=== PATIENT | male | born 1990 | race African-American/Black ===

== ENCOUNTER 2025-04-22 16:10 | Emergency (ER) | payer MEDICAID, SELFPAY ==
[2025-04-22 16:21] VITALS: BP 162/94; PULSE 93; RESP 16; TEMP 36.6; O2SAT 100; BMI 43.6
--- NOTE | 2025-04-22 16:52 | ED_ITS ---
Discharge Plan Disposition Patient Disposition: Home, Self-Care Condition: Good Prescriptions Prescriptions: New losartan-hydrochlorothiazide 100-25 mg tablet 1 tab PO DAILY Qty: 31 0RF atorvastatin [Lipitor] 40 mg tablet 40 mg PO DAILY Qty: 31 0RF Referrals Follow up/Referrals: Jared Albarado DO [Staff Physician, Family Practice] - See instructions Provider,Referral, MD [Primary Care Provider, Medical] - See instructions Activity Restrictions/Add. Instructions Additional Instructions/Restrictions: Have sent you with a referral to Dr. Albarado who is a primary care doctor. You will need to call to schedule an appointment. I have sent you with 1 month of your medications and you will need to get additional refills from him. Return to the emergency department for any acute or worsening symptoms. Clinical Impressions Clinical Impression: Has run out of medications Print Language Print Language: Portuguese Discharge ED Provider: Mary Horton Adult HPI General Chief complaint: PAIN Stated complaint: Out of BP Meds and wants to be seen to get treated Time Seen by Provider: 04/22/25 16:32 Mode of Arrival: Ambulatory Source of Information: Patient Description of Symptoms (Recalled from ER Triage Doc. by RN): Reports being prescribe blood pressure medication and chloesterol medication in [place] [facility] in December. States he has ran out of both medications and needs a refill. States he takes Atorvastatin 40mg daily and Losartan 100mg daily. Last does of both medications yesterday. History of Present Illness HPI narrative: Patient is a 35-year-old gentleman with a past medical history of high cholesterol and hypertension who presented to the emergency department with concern that he has run out of his blood pressure medications today. Patient states that he recently just got his insurance figured out and ran out today. Patient has not been established with a new primary care provider. Patient denies any symptoms including chest pain, shortness of breath headache abdominal pain nausea vomiting diarrhea or other associated symptoms. Related Data Previous Rx's ?Medication ?Instructions ?Recorded atorvastatin 40 mg tablet (Lipitor) 40 mg PO DAILY #31 tabs 04/22/25 losartan 100 1 tab PO DAILY #31 tabs 03/27 8/25 mg-hydrochlorothiazide 25 mg tablet Allergies Allergy/AdvReac Type Severity Reaction Status Date / Time No Known Allergies Allergy Verified 04/22/25 16:27 [facility] Disclaimer: The information contained in this section may have been updated after the patient was seen, as this information can be updated by other users. Social History Smoking Status: Current every day smoker alcohol intake: never current occupational status: other Travel in the last 8 weeks?: None ROS Obtained: Yes All systems reviewed & no additional complaints except as documented and Yes Systems reviewed as appropriate & no additional complaints except as documented Physical Exam General General appearance: alert and in no apparent distress Head Head exam: atraumatic, normocephalic and normal inspection Eye Eye exam: Present normal appearance, PERRL and EOMI; Absent scleral icterus ENT ENT exam: Present normal exam and normal external ear exam Neck Neck exam: Present normal inspection and full ROM Chest Chest inspection: Present normal inspection and symmetric chest wall rise Respiratory Respiratory exam: Present normal lung sounds bilaterally; Absent respiratory distress or wheezes Cardiovascular Cardiovascular exam: Present regular rate, normal rhythm and normal heart sounds Abdominal Exam Abdominal exam: Present soft and distention; Absent tenderness, guarding or rebound Extremities Exam Extremities exam: Present normal inspection and full ROM Back Exam Back exam: Present normal inspection and full ROM Neurological Exam Neurological exam: Present alert and oriented X3 Psychiatric Psychiatric exam: Present normal affect and normal mood Skin Skin exam: Present warm and dry Medical Decision Making Medical Records Medical records reviewed: Yes I reviewed the patient's medical records. Screening: Per USPSTF and CDC recommendations, given the prevalence of disease in our region, it is our hospital?s policy to screen for HIV and viral Hepatitis for all patients aged 18 and over and those with ongoing risk factors. Beto Inquiry Pt receiving controlled substance: No Vital Signs: 04/22/25 16:21 Temperature 97.9 F Temperature Source Oral Pulse Rate [Radial] 93 H Respiratory Rate 16 Blood Pressure [Left Arm] 162/94 H Blood Pressure Mean [Left Arm] 116 Blood Pressure Source [Left Arm] Automatic Cuff Blood Pressure Position [Left Arm] Sitting 02 Sat by Pulse Oximetry 100 Oxygen Delivery Method Room Air Lab Data Lab results reviewed: Yes I reviewed the patient's lab results. Orders (Tests/Meds): ED MEDICATIONS Discontinued Medications Generic Name Dose Route Start Last Admin Trade Name Freq PRN Reason Stop Dose Admin Hydrochlorothiazide 25 mg 04/22/25 17:00 Hydrochlorothiazide 25mg Tablet PO 04/22/25 17:01 ONCE ONE Irbesartan 100 mg 04/22/25 17:00 Irbesartan 150mg Tab PO 04/22/25 17:01 ONCE ONE Medical Decision Narrative: Patient is a 35-year-old gentleman with a past medical history of hypertension and high cholesterol who presented to the emergency department after running out of his medications. On arrival, patient was hemodynamically stable with unremarkable vital signs. Differential includes but not limited to: Medication noncompliance, medication refill, hypertensive urgency, hypertensive emergency, amongst others. Patient takes losartan 100 mg/hydrochlorothiazide 25 mg combo and takes 40 mg of atorvastatin daily. Patient was given a dose of his home medications here in the emergency department and patient was sent with a 1 month refill. Patient was sent with a referral to Dr. Albarado to establish primary care. Patient was mildly hypertensive with a systolic of 160s but patient was otherwise asymptomatic therefore further workup and labs were not felt to be indicated at this time. Patient was otherwise discharged home in stable condition return precautions jeff e discussed. Critical Care Critical Care Time Critical Care Time: No
[2025-04-22] MEDS: IRBESARTAN 150MG TAB 100 MG PO (17:23)
[2025-04-22 17:27] VITALS: BP 160/89; PULSE 89; RESP 16; TEMP 36.6; O2SAT 100
== END 2025-04-22 17:28 | disposition home or self-care (01) ==
PROVIDERS: Emergency Provider Student in an Organized Health Care Education/Training Program
DX: I10 Essential (primary) hypertension (principal); E78.5 Hyperlipidemia, unspecified; Z76.0 Encounter for issue of repeat prescription
CPT/HCPCS: 99282

== ENCOUNTER 2025-05-25 04:49 | Emergency (ER) | payer MEDICAID, SELFPAY ==
--- OUTSIDE RECORDS SUMMARY | 2025-05-25 04:56 | XMS_ITS | Continuity of Care Document ---
Author Organization [facility] Health[facility]. If a dditional information is needed, contact Health Information Management at [phone] [place] [address] Phone Care Team Providers Care Lead Coater Name Role Phone Unavailable Unavailable Unavailable Unavailable Unavailable Unavailable Unavailable Unavailable Unavailable Unavailable Unavailable Unavailable Unavailable Unavailable Unavailable Unavailable Unavailable Unavailable Unavailable Unavailable Unavailable Unavailable Unavailable Unavailable Unavailable Unavailable Unavailable Unavailable Unavailable Unavailable Unavailable Unavailable Problems Personal history finding Onset:21-Jul-2020 Memo Jones Status:Acute Toothache Onset:01-May-2017 Memo Jones Status:Acute Comments:Onset Date: Toothache Onset:01-May-2017 Domenico Huston Status:Acute Comments:Onset Date: Lumbosacral strain Onset:22-Jan-2016 Barrie Mclani Status:Acute Comments:Onset Date: Sprain of ankle Onset:22-Jan-2016 Barrie Mclain Status:Acute Comments:Onset Date: Nausea and vomiting Onset:24-Nov-2015 Barrie Mclain Status:Acute Comments:Onset Date: [id number] Lightheadedness Onset:22-Jul-2015 Dex Chaney Status:Acute Comments:Onset Date: [id number] Pharyngitis Onset:23-Mar-2015 Deja Crane Status:Acute Comments:Onset Date: [id number] Bronchitis Onset:23-Mar-2015 Deja Crane Status:Acute Comments:Onset Date: [id number] Pain Onset:06-Jan-2015 Rodolfo Ontiveros P.A.-C Status:Acute Comments:Onset Date: [id number] Pain Onset:06-Jan-2015 Benigno Anthony DO Status:Acute Comments:Onset Date: Diarrhea Onset:24-Dec-2014 Antonio Arellano Status:Acute Comments:Onset Date: Functional Status Functional finding 01-Sep-2020 Functional finding 01-Sep-2020 Functional finding 01-Sep-2020 Functional finding 21-Jul-2020 Functional finding 21-Jul-2020 Functional finding 21-Jul-2020 Functional finding 01-May-2017 Functional finding 01-May-2017 Functional finding 01-May-2017 Allergies and Adverse Reactions No Known Allergies(Allergy) Onset: 01-Sep-2020 Medications penicillin V potassium 500 m g tablet;1 TAB ORAL Four Times a Day Start:01-Sep-2020 Comments:1 tab PO QID penicillin V potassium 500 m g tablet;1 TAB ORAL Four Times a Day Start:21-Jul-2020 Status:Aborted Comments:1 tab PO QID Motrin;1 TAB ORAL Three Time s a Day Start:21-Jul-2020 Status:Aborted Comments:1 tab PO TID Motrin;800 MG ORAL Two Times a Day Start:04-May-2017 Status:Aborted Comments:800 mg PO BID Motrin;800 MG ORAL Three Miki es a Day Start:04-May-2017 Status:Aborted Comments:800 mg PO TID Cleocin HCl;450 MG ORAL Thre e Times a Day Start:04-May-2017 Status:Aborted Comments:450 mg PO TID penicillin V potassium 500 m g tablet;500 MG ORAL Every 6 Hours Start:01-May-2017 Status:Aborted Comments:500 mg PO Q6 diclofenac sodium;50 MG ORAL Three Times a Day As Needed Start:15-Apr-2016 Status:Aborted Comments:50 MG PO TID PRN As Needed for Pain Scale 6-10 amoxicillin;500 MG ORAL Thre e Times a Day Start:15-Apr-2016 Status:Aborted Comments:500 MG PO TID Flexeril;10 MG ORAL Two Time s a Day As Needed Start:22-Jan-2016 Status:Aborted Comments:10 MG PO BID PRN As Needed for Muscle Spasms naproxen;500 MG ORAL Two Miki es a Day As Needed Start:22-Jan-2016 Status:Aborted Comments:500 MG PO BID PRN As Needed for Pain / Cramps Thayne [id number]_[id number]-AOM;1 TAB ORAL Every 6 Hours as Needed Start:22-Jan-2016 Status:Aborted Comments:1 TAB PO Q6H PRN As Needed for Pain Xolebxcgs_[id number];25 MG ORAL Every 6 Hours as Needed Start:24-Nov-2015 Status:Aborted Comments:25 MG PO Q6H PRN As Needed for Nausea/Vomiting Ventolin Hfa_[id number]-AOM;2 PUFF INHALATION Every 4 Hours as Needed Start:23-Mar-2015 Status:Aborted Comments:2 PUFF INH RT Q4H PRN As Needed for Cough Veetids_PENI500T-AOM;1000 MG ORAL Two Times a Day Start:06-Jan-2015 Status:Aborted Comments:1000 MG PO BID Thayne 2-687_[id number]-AOM;1 TAB ORAL Every 4 Hours as Needed Start:06-Jan-2015 Status:Aborted Comments:1 TAB PO Q4H PRN As Needed for Pain Scale 1-5 Imodium_[id number];4 MG ORAL Once Start:24-Dec-2014 Status:Aborted Comments:4 MG PO ONCE Imodium_[id number]-AOM;2 MG ORAL Every 2 Hours as Needed Start:24-Dec-2014 Status:Aborted Comments:2 MG PO Q2H PRN As Needed for Diarrhea Zofran ODT_[id number]-AOM;4 M G SUBLINGUAL Every 6 Hours as Needed Start:24-Dec-2014 Status:Aborted Comments:4 MG SL Q6H PRN As Needed for Nausea Social History Smoking Status Tobacco smoking consumption unknown Recorded: Aug-2020 Ex-smoker Recorded: 21-Jul-2020 Smokes tobacco daily Recorded: 01-May-2017
[2025-05-25 04:57] VITALS: BP 162/114; PULSE 91; RESP 16; TEMP 36.6; O2SAT 98; BMI 43.6
--- NOTE | 2025-05-25 05:05 | ED_ITS ---
Discharge Plan Disposition Patient Disposition: Home, Self-Care Condition: Good Prescriptions Prescriptions: New losartan-hydrochlorothiazide 100-25 mg tablet 1 tab PO DAILY Qty: 30 2RF atorvastatin [Lipitor] 40 mg tablet 40 mg PO DAILY Qty: 30 2RF No Action losartan-hydrochlorothiazide 100-25 mg tablet 1 tab PO DAILY Qty: 31 0RF atorvastatin [Lipitor] 40 mg tablet 40 mg PO DAILY Qty: 31 0RF Referrals Follow up/Referrals: Provider,Referral, MD [Primary Care Provider, Medical] - See instructions Activity Restrictions/Add. Instructions Additional Instructions/Restrictions: Please follow-up with your primary care provider. Please return to the [facility] department if you develop any new or worsening symptoms or become concerned for your health. Clinical Impressions Clinical Impression: Has run out of medications Print Language Print Language: Lao Discharge ED Provider: Lance Hudson Adult HPI General Chief complaint: PAIN Stated complaint: out of bp meds Time Seen by Provider: 05/25/25 04:50 Mode of Arrival: Ambulatory Source of Information: Patient Description of Symptoms (Recalled from ER Triage Doc. by RN): Patient here previously and was given a 30 day supply of blood pressure medication; states he has not been able to get in with doctor, has an appointment on the and couldn't get one sooner. Needs a refill on the blood pressure medicine. History of Present Illness HPI narrative: 35-year-old male with history of hypertension and hyperlipidemia presents for a refill of his meds. He is out and will be able to be back to see his doctor for another week or so. Denies any specific concerns or complaints. Related Data Previous Rx's ?Medication ?Instructions ?Recorded atorvastatin 40 mg tablet (Lipitor) 40 mg PO DAILY #31 tabs 04/22/25 losartan 100 1 tab PO DAILY #31 tabs 11/2 8/25 mg-hydrochlorothiazide 25 mg tablet atorvastatin 40 mg tablet (Lipitor) 40 mg PO DAILY #30 tabs 05/25/25 losartan 100 1 tab PO DAILY #30 tabs 12/3 1/25 mg-hydrochlorothiazide 25 mg tablet Allergies Allergy/AdvReac Type Severity Reaction Status Date / Time No Known Allergies Allergy Verified 04/22/25 16:[address] [facility] Disclaimer: The information contained in this section may have been updated after the patient was seen, as this information can be updated by other users. Social History (Updated 04/22/25 @ 17:23 by Mary Horton DO) Smoking Status: Current every day smoker alcohol intake: never current occupational status: other Travel in the last 8 weeks?: None Have you lived/traveled outside [place] in past 30 days?: No Contact w/someone who lives/traveled outside US past 30 days?: No Exposure to someone with infectious disease in past 14 days?: No Do you have a fever (greater than 100.4 F or 38 C)?: No Have you tested positive for COVID-19?: No Exposed to someone with COVID-19 in past 14 days?: No Do you have a sore throat?: No Do you have a cough?: No Do you have any weakness?: No Do you have any diarrhea?: No Are you experiencing any unusual bleeding?: No Do you have any muscle aches/pain?: No Do you have any abdominal pain?: No Are you experiencing loss of taste or smell?: No ROS Obtained: Yes All systems reviewed & no additional complaints except as documented Physical Exam General General appearance: alert and in no apparent distress Head Head exam: atraumatic and normocephalic Eye Eye exam: Present normal appearance, PERRL and EOMI ENT ENT exam: Present normal oropharynx and normal external ear exam Neck Neck exam: Present normal inspection and full ROM Chest Chest inspection: Present normal inspection and symmetric chest wall rise; Absent tenderness Respiratory Respiratory exam: Present normal lung sounds bilaterally; Absent respiratory distress Cardiovascular Cardiovascular exam: Present regular rate and normal rhythm Abdominal Exam Abdominal exam: Present soft; Absent distention, tenderness or guarding Extremities Exam Extremities exam: Present normal inspection; Absent edema or joint swelling Back Exam Back exam: Present normal inspection; Absent tenderness Neurological Exam Neurological exam: Present alert and oriented X3; Absent motor sensory deficit Psychiatric Psychiatric exam: Present normal affect and normal mood Skin Skin exam: Present warm, dry and normal color Lymphatic Lymphatic Findings: no adenopathy Medical Decision Making Medical Records Medical records reviewed: Yes I reviewed the patient's medical records. Screening: Per USPSTF and CDC recommendations, given the prevalence of disease in our region, it is our hospital?s policy to screen for HIV and viral Hepatitis for all patients aged 18 and over and those with ongoing risk factors. Beto Inquiry Pt receiving controlled substance: No Beto was queried for this patient: No Vital Signs: 12/31/25 04:57 05/25/25 05:13 Temperature 97.9 F 97.9 F Temperature Source Oral Oral Pulse Rate 89 Pulse Rate [Right Radial] 91 H Respiratory Rate 16 16 Blood Pressure 164/102 H Blood Pressure [Right Arm] 162/114 H Blood Pressure Mean [Right Arm] 130 Blood Pressure Source Automatic Cuff Blood Pressure Source [Right Arm] Automatic Cuff Blood Pressure Position Supine Blood Pressure Position [Right Arm] Supine 02 Sat by Pulse Oximetry 98 Oxygen Delivery Method Room Air Room Air Lab Data Lab results reviewed: Yes I reviewed the patient's lab results. Orders (Tests/Meds): ED MEDICATIONS Discontinued Medications Generic Name Dose Route Start Last Admin Trade Name Freq PRN Reason Stop Dose Admin Hydrochlorothiazide 25 mg 05/25/25 05:04 05/25/25 05:10 Hydrochlorothiazide 25mg Tablet PO 05/25/25 05:05 25 mg ONCE ONE Administration Irbesartan 75 mg 05/25/25 05:02 05/25/25 05:10 Irbesartan 75mg Tablet PO 05/25/25 05:03 75 mg ONCE ONE Administration Medical Decision Narrative: 35-year-old male with history of hypertension, hyperlipidemia presents for refill of his medications without any acute complaints. History was obtained via interactive discussion with patient. On arrival, patient is [afebrile, hemodynamically stable, satting appropriately, alert, oriented x4, GCS 15], moving all extremities spontaneously. Full physical exam performed and significant for no significant physical exam abnormalities. Patient's losartan/HCTZ and atorvastatin were refilled. Patient was given dose of his blood pressure medication in the ER and discharged in stable condition. Procedures Risk/Benefits of Procedure(s) Were Explained: Yes Critical Care Critical Care Time Critical Care Time: No
[2025-05-25] MEDS: IRBESARTAN 75MG TABLET 75 MG PO (05:10)
[2025-05-25 05:13] VITALS: BP 164/102; PULSE 89; RESP 16; TEMP 36.6; O2SAT 98
== END 2025-05-25 05:15 | disposition home or self-care (01) ==
PROVIDERS: Emergency Provider Emergency Medicine
DX: Z76.0 Encounter for issue of repeat prescription (principal); I10 Essential (primary) hypertension; E78.5 Hyperlipidemia, unspecified; F17.210 Nicotine dependence, cigarettes, uncomplicated
CPT/HCPCS: 99282